=== PATIENT | female | born 1985 ===

== ENCOUNTER 2022-06-17 16:15 | Outpatient (CLI) | payer BC, SELFPAY ==
[2022-06-17 22:07] LABS: Chloride* 103 mmol/L (96-114)
[2022-06-17 22:08] LABS: Albumin* 4.6 g/dL (3.3-5.0); Potassium* 3.8 mmol/L (3.6-5.1); Sodium* 139 mmol/L (135-149)
[2022-06-17 22:11] LABS: Alanine Aminotransferase* 21 U/L (4-35); Alkaline Phosphatase* 94 U/L (40-150); Aspartate Amino Transferase* 21 U/L (12-35); Bilirubin Total* 0.3 mg/dL (0.1-1.5); Blood Urea Nitrogen* 13 mg/dL (5-24); Carbon Dioxide* 23 mmol/L (20-32); Creatinine* 0.9 mg/dL (0.5-1.5); Estimated Glomerular Filt Rate 84 ml/min; Glucose* 98 mg/dL (60-115); Total Protein* 7.7 g/dL (6.0-8.3)
[2022-06-17 22:12] LABS: Calcium* 9.5 mg/dL (8.4-10.6)
== END 2022-06-17 16:16 | disposition home or self-care (01) ==
PROVIDERS: PCP Physician Assistant Medical; Visit Provider Physician Assistant Medical
DX: Z01.419 Encounter for gynecological examination (general) (routine) without abnormal findings (principal); R79.89 Other specified abnormal findings of blood chemistry
CPT/HCPCS: 80053